=== PATIENT | female | born 1995 | race Caucasian/White ===

== ENCOUNTER 2016-06-28 09:58 | Inpatient (IN) | payer OTHER ==
[~2016-06-28] VITALS: Ht 163 cm; Wt 72.1 kg
[~2016-06-28 09:58] MED LIST: 0.9% SODIUM CHLORIDE 10 ML VIAL IVP ONE; DiphenhydrAMINE HCL 50 MG/ML VIAL IVP ONE; EPHEDrine SULFATE 50 MG/ML VIAL IM ONE; KETOROLAC TROMETHAMINE 60 MG/2 ML VIAL IM ONE; OXYTOCIN 10 UNITS/ML VIAL IM ONE; PHENYLEPHRINE HCL 10 MG/ML VIAL IVP ONE
[2016-06-28] MEDS ORDERED: RINGERS SOLUTION,LACTATED 1,000 ML IV ONE (10:16)
[2016-06-28] MEDS ORDERED: CITRIC ACID/SODIUM CITRATE 30 ML SOLUTION UDCUP PO ONE (10:30)
[2016-06-28] MEDS ORDERED: METOCLOPRAMIDE HCL 5 MG/ML 2 ML VIAL IVP ONE (10:30)
[2016-06-28] MEDS ORDERED: PREN1TAB80 PO (10:31)
[2016-06-28 10:55] VITALS: BP 96/55
[2016-06-28] MEDS ORDERED: MORPHINE SULFATE/PF 0.5 MG/ML 10 ML AMP ONE (11:26)
[2016-06-28] MEDS ORDERED: CeFAZolin 2 GM/DEXTROSE 50 ML IV ONE (11:26)
[2016-06-28] MEDS ORDERED: FentaNYL CITRATE-PF 100 MCG/2 ML VIAL ONE (11:26)
[2016-06-28 11:27] LABS: BASOPHILS % (AUTO) 0.4 % (0.0-2.0); EOSINOPHILS % (AUTO) 1.3 % (1.0-6.0); HEMATOCRIT 36.2 % (36-46); HEMOGLOBIN 11.8 g/dL (12.0-16.0); LYMPHOCYTES # (AUTO) 1.5 K/uL (1.0-4.8); LYMPHOCYTES % (AUTO) 18.5 % (22.0-44.0); MEAN CORPUSCULAR HEMOGLOBIN 29.7 pg (26.0-34.0); MEAN CORPUSCULAR HGB CONC 32.6 G/dL (31.0-37.0); MEAN CORPUSCULAR VOLUME 91 fL (80-100); MONOCYTES # (AUTO) 0.7 K/uL (0.1-1.0); MONOCYTES % (AUTO) 8.6 % (2.0-9.0); NEUTROPHILS # (AUTO) 5.7 K/uL (1.8-7.7); NEUTROPHILS % (AUTO) 71.2 % (40.0-70.0); RED BLOOD CELL COUNT(AUTO) 3.98 MIL/uL (4.00-5.20); RED CELL DISTRIBUTION WIDTH 13.1 % (11.5-14.5)
[2016-06-28] MEDS ORDERED: DiphenhydrAMINE HCL 50 MG/ML VIAL IVP PRN ×2 (12:00)
[2016-06-28] MEDS ORDERED: NALOXONE HCL 0.4 MG/ML VIAL IVP PRN (12:00)
[2016-06-28] MEDS ORDERED: NALBUPHINE HCL 10 MG/ML VIAL IVP PRN ×5 (12:00→14:00)
[2016-06-28] MEDS ORDERED: DEXAMETHASONE SOD PHOS 4 MG/ML VIAL IVP PRN (12:00)
[2016-06-28] MEDS ORDERED: PROMETHAZINE HCL 12.5 MG in SODIUM CHLORIDE 0.9% 50 ML IV PRN (12:00)
[2016-06-28] MEDS ORDERED: MEPERIDINE-PF 25 MG/ML SYRINGE IVP PRN (12:00)
[2016-06-28] MEDS ORDERED: ONDANSETRON HCL 4 MG/2 ML VIAL IVP PRN ×2 (12:00)
[2016-06-28] MEDS ORDERED: FentaNYL CITRATE-PF 100 MCG/2 ML VIAL IVP PRN ×4 (12:00)
[2016-06-28] MEDS ORDERED: OXYGEN THERAPY IH SCH ×4 (12:02→20:00)
[2016-06-28] MEDS ORDERED: LANOLIN 7 GM OINTMENT TP PRN (13:45)
[2016-06-28] MEDS ORDERED: ACETAMINOPHEN/CODEINE 300-30 MG TABLET PO PRN ×2 (13:45)
[2016-06-28] MEDS ORDERED: NALBUPHINE HCL 10 MG/ML VIAL ONE (14:20)
[2016-06-28] MEDS: DEXTROSE 5%-0.45% SODIUM CHL 1,000 ML IV SCH ×3 (14:28→23:33)
[2016-06-28] MEDS ORDERED: DEXTROSE 5%-0.45% SODIUM CHL 1,000 ML IV ONE (14:28)
[2016-06-29] MEDS: DEXTROSE 5%-0.45% SODIUM CHL 1,000 ML IV SCH (03:15)
[2016-06-29] MEDS ORDERED: IBUPROFEN 800 MG TABLET PO SCH ×2 (07:00→13:00)
[2016-06-29] MEDS: MAGNESIUM HYDROXIDE SUSPENSION 30 ML UDCUP PO SCH ×2 (08:52→21:04)
[2016-06-29] MEDS: IBUPROFEN 800 MG TABLET PO SCH ×3 (12:10→23:35)
[2016-06-30] MEDS: IBUPROFEN 800 MG TABLET PO SCH ×2 (06:05→12:46)
[2016-06-30] MEDS ORDERED: IBUP-1547 PO (12:38)
[2016-06-30] MEDS ORDERED: FERR-89 PO (12:45)
== END 2016-06-30 13:20 | disposition home or self-care (01) | DRG 540 ==
LOC: 4S 10:05 → OBSVTOIN 10:05
PROVIDERS: ADMIT Obstetrics & Gynecology; ATTEND Obstetrics & Gynecology
PROC: 10D00Z1 Extraction of Products of Conception, Low, Open Approach (ICD-10-PCS; principal; 2016-06-28)
PROC: 10907ZC Drainage of Amniotic Fluid, Therapeutic from Products of Conception, Via Natural or Artificial Opening (ICD-10-PCS; 2016-06-28)
DX: O34.219 Maternal care for unspecified type scar from previous cesarean delivery (principal); Z91.018 Allergy to other foods; Z37.0 Single live birth; Z3A.39 39 weeks gestation of pregnancy
CPT/HCPCS: 86850; 86900; 86901; 87081; J0690; J1200; J1885; J2274; J2300; J2370; J2590; J2765; J3010; J3490; J7120